=== PATIENT | female | born 1965 | race Caucasian/White ===

== ENCOUNTER → 2021-04-22 | Outpatient (CLI) | payer OTHER ==
[~2021-04-22] MED LIST: BUSPAR 10MG10 MG PO; BUTALBITAL-ASA1 EACH PO; CIPROFLOXACIN500 M1 PO; DEXAMETHASONE4 MG PO; IBUPROFEN800 MG PO; MOBIC15 MG PO; NON-DROWSY ALLE10 MG PO; NORCO 5-325 TA1 EACH PO; PHENAZOPYRIDIN200 MG PO; PHENERGAN 25 MG25 M1 PO; ROPINIROLE HCL0.5 MG PO; VENLAFAXINE HC150 MG PO
== END ==
LOC: NM 09:30
DX: E04.9 Nontoxic goiter, unspecified (principal); E04.1 Nontoxic single thyroid nodule
CPT/HCPCS: 78012; A9516